=== PATIENT | male | born 1975 | race Caucasian/White ===

== ENCOUNTER 2017-03-21 05:53 | Inpatient (IN) | payer OTHER ==
[2017-03-20 15:02] VITALS: Ht 185.4 cm; Wt 90.0 kg
[2017-03-21] VITALS (22 sets, daily range): BP systolic 107–146; BP diastolic 61–87; PULSE 60–82; RESP 10–18
[~2017-03-21] VITALS: Ht 185.4 cm; Wt 90.0 kg
--- NOTE | 2017-03-21 06:57 | HPN ---
Date/Time of Note Date/Time of Note DATE: 03/21/17 TIME: 06:57 Interval H&P Admission Note Pt. seen H&P reviewed: No system changes PRASANNA MCCLAIN MD Mar 21, 2017 06:57
[2017-03-21] MEDS ORDERED: HYDROmorphONE 1 MG/ML SYG IV PRN (07:00)
[2017-03-21] MEDS ORDERED: NALOXONE (0.4 MG/ML) INJ IV PRN (07:00)
[2017-03-21] MEDS ORDERED: GELATIN SIZE 100 SPONGE ONE (07:01)
[2017-03-21] MEDS ORDERED: SURGIFOAM POWDER 1 GM KIT ONE (07:01)
[2017-03-21] MEDS ORDERED: THROMBIN 5000 UNIT VIAL ONE (07:02)
[2017-03-21] MEDS ORDERED: POLYMYXIN/BACITRACIN 1L IRRIG ONE (07:02)
[2017-03-21] MEDS ORDERED: BUPIVACAINE 0.5%/EPI (SDV) 30 ML INJ ONE (07:02)
[2017-03-21] MEDS ORDERED: SODIUM CL BACTERIOSTATIC 30 ML INJ ONE (07:02)
[2017-03-21] MEDS ORDERED: FENTAnyl 50 MCG/ML VIAL ONE ×2 (07:10→09:02)
[2017-03-21] MEDS ORDERED: LABETALOL HCL 20MG INJ ONE (07:53)
[2017-03-21] MEDS ORDERED: SUCCINYLCHOLINE CHLORIDE 100 MG/5 ML SYG IV ONE (08:00)
[2017-03-21] MEDS ORDERED: ROCURONIUM 50 MG INJ ONE (08:00)
[2017-03-21] MEDS ORDERED: PROPOFOL 20 ML ONE (08:00)
[2017-03-21] MEDS ORDERED: LIDOCAINE 2% (SDV) 5 ML INJ ONE (08:00)
[2017-03-21] MEDS ORDERED: SUGAMMADEX SODIUM 200 MG/2 ML VIAL IV ONE (08:00)
[2017-03-21] MEDS ORDERED: CEFAZOLIN 1 GM INJ ONE (08:00)
[2017-03-21] MEDS ORDERED: ONDANSETRON 4 MG INJ IV PRN (08:30)
[2017-03-21] MEDS ORDERED: METOCLOPRAMIDE 10 MG INJ IV PRN (08:30)
[2017-03-21] MEDS ORDERED: DIPHENHYDRAMINE 50 MG INJ IV PRN ×2 (08:30→10:00)
[2017-03-21] MEDS ORDERED: FENTAnyl 50 MCG/ML VIAL IV PRN ×2 (08:30)
[2017-03-21] MEDS ORDERED: LABETALOL HCL 20MG INJ IV PRN (08:30)
[2017-03-21] MEDS ORDERED: MEPERIDINE 25 MG INJ IV PRN (08:30)
[2017-03-21] MEDS ORDERED: HYDROmorphONE (0.2 MG/ML) 10ML SYG IV PRN ×3 (08:30)
[2017-03-21] MEDS ORDERED: BUPIVACAINE 0.25%/EPI (SDV) 10 ML INJ INJ ONE (08:58)
--- NOTE | 2017-03-21 09:25 | SIPON ---
Date/Time of Note Date/Time of Note DATE: 03/21/17 TIME: 09:24 Operative Report Preoperative Diagnosis C5-6 cervical disc disease and stenosis Postoperative Diagnosis C5-6 cervical disc disease and stenosis Operation/Procedure Performed ACDF at C5-6 Surgeon see signature line assistant field hockey coach Robina solo Anesthesia: general Estimated blood loss: 10 - 50 ml's Transfusion Required none Specimen C5-6 disc Grafts/Implants Cervical plate and cage Complications none PRASANNA MCCLAIN MD Mar 21, 2017 09:25
[2017-03-21] MEDS: HYDROmorphONE 0.2 MG/ML PCA IV SCH ×2 (09:43→19:47)
--- NOTE | 2017-03-21 09:46 | RADRPT ---
PROCEDURE: Intraoperative fluoroscopy. CLINICAL INDICATION: Intraoperative fluoroscopy during cervical spine surgery. TECHNIQUE: 5 spot intraoperative fluoroscopic images were provided. The images were reviewed on a high-resolution PACS workstation. COMPARISON: None available FINDINGS: Multiple spot intraoperative fluoroscopic views were provided during cervical spine surgery. The im ages demonstrate initial metallic probe at the C5-6 level. Subsequent images demonstrate anterior ce rvical discectomy and fusion at C5-6. The hardware appears in satisfactory position. The total fluo roscopy time was 14.1 seconds. IMPRESSION: 1. Multiple spot intraoperative fluoroscopic views during cervical spine surgery were provided. 2. Please see operative report of the same day for further information. RPTAT: HGAS .Curry Mcallister MD, MD Date Time Electronically viewed and signed by .Curry Mcallister MD, on 03/21/2017 09:45 .S/
[2017-03-21] MEDS ORDERED: DIPHENHYDRAMINE 25 MG CAP PO PRN (10:00)
[2017-03-21] MEDS ORDERED: BISACODYL 10 MG SUPP PR PRN (10:00)
[2017-03-21] MEDS ORDERED: AL HYDROX/MG HYDROX/SIMETH 30 ML CUP PO PRN (10:00)
[2017-03-21] MEDS ORDERED: ACETAMINOPHEN 325 MG TAB PO PRN (10:00)
[2017-03-21] MEDS ORDERED: CEFAZOLIN 1 GM/50 ML (PMX) 50 ML IVPB SCH (10:00)
[2017-03-21] MEDS ORDERED: CYCLOBENZAPRINE 10 MG TAB PO PRN (10:00)
[2017-03-21] MEDS ORDERED: CEPASTAT LOZENGE MT PRN (10:00)
[2017-03-21] MEDS: ONDANSETRON 4 MG INJ IV PRN (10:07)
[2017-03-21] MEDS: FENTAnyl 50 MCG/ML VIAL IV PRN ×2 (10:21→12:51)
[2017-03-21] MEDS: D5W-0.45 NACL + KCL 20 MEQ 1,000 ML IV SCH ×2 (11:06→21:11)
--- NOTE | 2017-03-21 11:12 | OPR ---
DATE OF OPERATION: 03/21/2017 PREOPERATIVE DIAGNOSIS: C5-6 cervical disc disease and stenosis with radiculopathy. POSTOPERATIVE DIAGNOSIS: C5-6 cervical disc disease and stenosis with radiculopathy. PROCEDURE: 1. Anterior cervical diskectomy, spinal cord decompression at C5-6. 2. Anterior cervical fusion at C5-6. 3. Placement of intervertebral biomechanical device at C5, C6. 4. Placement of anterior hardware at C5-6. 5. Use of allograft. 6. Use of C-arm flash with interpretation without radiologist present. 7. Use of operative microscope. 8. Intraoperative neuro monitoring (1.5 hours). PRIMARY SURGEON: Salbador Valdez MD. TIMBER FELLER: Robina Jansen PA-C. NEED FOR SURGICAL ASSISTANCE: Superintendent Building was required in order to retract neurovascular elements. IMPLANTS: 1. Zavation 12 mm cervical plate with 14 mm screws. 2. BK peek cage 8 mm x 16 mm x 18 mm. 3. Fiber graft matrix. FINDINGS: Neuro monitor of the case revealed left C5 amplitude down 30 percent left C6 amplitude of 30 percent and the case nerve signal returned to normal. The patient had stenosis at C5- 6 due to posterior osteophytes. ESTIMATED BLOOD LOSS: 30 cc. DRAINS: None. SPECIMENS: Disc. COMPLICATIONS: None. ANESTHESIOLOGIST: Dr. Hurtado. ANESTHESIA: General. INDICATION FOR PROCEDURE: This is a 41-year-old gentleman with left cervical radiculopathy, in the setting of cervical disease and stenosis. He failed nonoperative measures, therefore, recommended proceeding with the above mentioned surgery. Preoperatively, discussed risks, benefits, alternatives. He understood and wished to proceed. DESCRIPTION OF PROCEDURE IN DETAIL: The patient was identified in the holding area, given Ancef antibiotics in the operating room, where he was successfully placed under general anesthesia. Neuro monitors were placed. Sequential devices were applied. Neural monitoring was utilized during the procedure for 1.5 hours to include SSEP, MEP, and EMG. This was performed by [employer]. Start time was 8:00 a.m., closure time was 9:30 a.m. The patient was placed on the operative table in supine position. Arms were tucked. Towel rolls were placed. The neck was extended. Neck was prepped and draped in the usual sterile fashion. I injected the incision site with Marcaine and epinephrine. A left-sided neck incision was made. Incision was taken down to the platysma. Platysma was incised in line with the skin incision. I then identified the interval between the sternocleidomastoid and strap muscles. I identified the anterior spine. I placed a bent spinal into what was felt to be the C5-6 level and then a lateral film obtained to confirm the correct levels. Once this was confirmed the subperiosteal was dissected along the longus coli musculature. Self-retaining retractors were then placed. Microscope was brought in. Radical diskectomy was performed at the C5-6 level. I used a high-speed bur to thin down the posterior osteophytes. I then took a Kerrison to decompress the spinal cord and the neural foramina bilaterally. I removed the posterior longitudinal ligament. Once this was done, all nerve signal returned to normal. I then paid placed various trials and chose the appropriate graft height. Of note, the decompression was performed under the microscope. I then took the peek cage which I placed the allograft that was mixed with blood and I impacted the intervertebral biomechanical device into the C5-6 level to complete the anterior cervical fusion at C5-6. I then placed a cervical plate anteriorly at C5-6 with 14 mm screws. I locked down the screws. Once the hardware was in place I took final AP and lateral images that showed the hardware in line with the screws. Hemostasis achieved with bipolar cautery, Surgiflo and Gelfoam and thrombin. That was then irrigated. The wound was dry and therefore I elected not to place a drain. Microscope was taken off the field. I closed the platysma with a running 2-0 Vicryl stitch. I closed the skin with a 3-0 Vicryl stitch. Dermabond was then applied. The patient was then awakened from anesthesia, and taken to the recovery room in stable condition. Lap, sponge, and counts correct x2. There were no apparent complications during the procedure. The patient will be admitted to the [facility] for routine postoperative care to include pain control, antibiotics and physical therapy. Dictated By: Salbador Valdez MD /joan/nova /Document#: [id number]
--- NOTE | 2017-03-21 12:06 | CONS ---
DATE OF ADMISSION: 03/21/2017 DATE OF CONSULTATION: 03/21/2017 REASON FOR CONSULTATION: History of left arm radiculopathy due to cervical spine disease. HISTORY OF PRESENT ILLNESS: This 41-year-old man has been having neck pain with radiation down his left arm. The patient was diagnosed preoperatively with cervical spine stenosis. He has disease at the C5-C6 level. The patient is now postop a cervical spine anterior cervical diskectomy and spinal cord decompression at the C5-C6 level. He also underwent an anterior cervical fusion at C5-C6 level. The patient is awake and alert. He answers questions appropriately. His is in the room with him. The patient denies any chest pain, shortness of breath, nausea, vomiting. PAST MEDICAL HISTORY: Unremarkable. CURRENT MEDICATIONS: Include Flexeril, and he was on ibuprofen, which was discontinued preoperatively. PAST SURGICAL HISTORY: Cholecystectomy. ALLERGIES TO MEDICATION: No known drug allergies. SOCIAL HISTORY: The patient is in the . 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 He is . He does not smoke. He drinks alcohol occasionally. He lives with his family. PHYSICAL EXAMINATION: GENERAL APPEARANCE: At this time reveals a well-developed man in no apparent distress. VITAL SIGNS: Pulse is 77, blood pressure 120/75, O2 saturation 98 percent on 2 L nasal cannula. HEENT: Head normocephalic. Eyes: Extraocular muscles intact. Nose and mouth are normal. NECK: Neck is postsurgical with a dry fresh wound on the left side of the neck without swelling or erythema. There is no drainage. LUNGS: Clear to auscultation. HEART: Regular rhythm. No murmurs, gallops, or rubs. ABDOMEN: Soft, nontender. EXTREMITIES: No peripheral edema. IMPRESSION: The patient is doing well after surgery today. He is awake and alert and has no complaints. He seems comfortable, and his pain is controlled. I will continue to follow the patient and manage his medical issues. PLAN: 1. Check labs in the morning. 2. Postoperative cervical spine surgery protocol. 3. I will follow the patient along with you Dictated By: Nathanael Farrell MD /joan/freddy /Document#: [id number]
[2017-03-21] MEDS: CEFAZOLIN 1 GM/50 ML (PMX) 50 ML IVPB SCH ×2 (13:46→21:43)
[2017-03-21] MEDS: DOCUSATE SODIUM 100 MG CAP PO SCH (21:42)
[2017-03-22 01:54] VITALS: BP 115/70; RESP 18
[2017-03-22 05:29] LABS: BASOPHILS % 0.3 % (0.0-2.0); EOSINOPHILS # 0.1 10^3/ul (0.0-0.5); EOSINOPHILS % 1.2 % (0.0-7.0); HEMATOCRIT 35.4 % (42.0-52.0); HEMOGLOBIN 11.7 g/dl (14.0-18.0); LYMPHOCYTES # 1.3 10^3/ul (0.8-2.9); LYMPHOCYTES % 22.3 % (15.0-51.0); MEAN CORPUSCULAR HEMOGLOBIN 29.8 pg (29.0-33.0); MEAN CORPUSCULAR HGB CONC 33.1 g/dl (32.0-37.0); MEAN CORPUSCULAR VOLUME 90.1 fl (82.0-101.0); MEAN PLATELET VOLUME 9.5 fl (7.4-10.4); MONOCYTE # 0.5 10^3/ul (0.3-0.9); MONOCYTES % 8.9 % (0.0-11.0); PLATELET COUNT 175 10^3/UL (140-415); RED BLOOD COUNT 3.93 10^6/ul (4.70-6.10); RED CELL DISTRIBUTION WIDTH 11.4 % (11.5-14.5)
[2017-03-22] MEDS ORDERED: PANTOPRAZOLE 40 MG INJ IV SCH (06:00)
[2017-03-22] MEDS: CEFAZOLIN 1 GM/50 ML (PMX) 50 ML IVPB SCH (06:04)
[2017-03-22 06:10] LABS: CALCIUM 8.2 mg/dl (8.4-10.2); CREATININE 1.02 mg/dl (0.61-1.24); MAGNESIUM 1.7 mg/dl (1.7-2.5); POTASSIUM 3.8 mmol/L (3.5-5.1)
[2017-03-22] MEDS: D5W-0.45 NACL + KCL 20 MEQ 1,000 ML IV SCH (06:43)
[2017-03-22 08:19] VITALS: BP 117/74; RESP 18
[2017-03-22] MEDS: DOCUSATE SODIUM 100 MG CAP PO SCH (08:40)
[2017-03-22] MEDS: ONDANSETRON 4 MG INJ IV PRN (08:40)
[2017-03-22] MEDS ORDERED: HYDROCODONE/APAP (10/325) TAB PO SCH (09:30)
[2017-03-22] MEDS: HYDROCODONE/APAP (10/325) TAB PO PRN ×2 (09:37→11:39)
--- NOTE | 2017-03-22 09:45 | DS ---
Date/Time of Note Date/Time of Note DATE: 03/22/17 TIME: 09:44 Discharge Summary Admission/Discharge Info Admit Date/Time Mar 21, 2017 at 05:53 Discharge Date/Time 03/22 Discharge Diagnosis cervical fusion Procedures cervical fusion Hx of Present Illness neck and arm pain Hospital Course patient admitted to [facility] after undergoing cervical fusion. post op course uncomplicated stable for d/c f/u arranged Home Meds No Active Prescriptions or Reported Meds Primary Care Provider Not On Staff Doctor Pending Labs Laboratory Tests Test 03/22/17 04:31 White Blood Count 6.010^3/ul (4.8-10.8) Red Blood Count 3.9310^6/ul (4.70-6.10) Hemoglobin 11.7g/dl (14.0-18.0) Hematocrit 35.4% (42.0-52.0) Mean Corpuscular Volume 90.1fl (82.0-101.0) Mean Corpuscular Hemoglobin 29.8pg (29.0-33.0) Mean Corpuscular Hemoglobin Concent 33.1g/dl (32.0-37.0) Red Cell Distribution Width 11.4% (11.5-14.5) Platelet Count 02570^3/UL (140-415) Mean Platelet Volume 9.5fl (7.4-10.4) Neutrophils % 67.0% (39.0-77.0) Lymphocytes % 22.3% (15.0-51.0) Monocytes % 8.9% (0.0-11.0) Eosinophils % 1.2% (0.0-7.0) Basophils % 0.3% (0.0-2.0) Nucleated Red Blood Cells % 0.0/100WBC (0.0-0.0) Neutrophils # 4.010^3/ul (1.6-7.5) Lymphocytes # 1.310^3/ul (0.8-2.9) Monocytes # 0.510^3/ul (0.3-0.9) Eosinophils # 0.110^3/ul (0.0-0.5) Basophils # 0.010^3/ul (0.0-0.1) Nucleated Red Blood Cells # 0.010^3/ul (0.0-0.0) Sodium Level 134mmol/L (135-144) Potassium Level 3.8mmol/L (3.5-5.1) Chloride Level 100mmol/L (97-110) Carbon Dioxide Level 29mmol/L (21-31) Anion Gap 9 (8-16) Blood Urea Nitrogen 9mg/dl (7-20) Creatinine 1.02mg/dl (0.61-1.24) Glucose Level 124mg/dl (70-220) Calcium Level 8.2mg/dl (8.4-10.2) Magnesium Level 1.7mg/dl (1.7-2.5) PRASANNA MCCLAIN MD Mar 22, 2017 09:45
[2017-03-22] MEDS ORDERED: HYDROCODONE/APAP (10/325) TAB PO PRN (10:00)
[2017-03-22] MEDS ORDERED: ONDANSETRON 4 MG INJ IV STA (11:16)
--- NOTE | 2017-03-22 11:20 | CONS ---
Date/Time of Note Date/Time of Note DATE: 03/22/17 TIME: 11:06 Assessment/Plan Assessment/Plan Chief Complaint/Hosp Course He is one day post op a cervical spine surgery . He is having some nausea . He is up walking with PT and doing well . He can be discharged to home today . Problems: Consultation Date/Type/Reason Admit Date/Time Mar 21, 2017 at 05:53 Initial Consult Date 24 HR Interval Summary Free Text/Dictation He is 1 day post op a cervical spine surgery .He is up walking with physical therapy . He c/o nausea . Exam/Review of Systems Vital Signs Vitals Vital Signs Date Time Temp Pulse Resp B/P Pulse Ox O2 Delivery O2 Flow Rate FiO2 03/22/17 08:19 98.1 75 18 117/74 98 03/21/17 20:00 Nasal Cannula 2.0 Intake and Output 03/21/17 03/21/17 03/22/17 15:00 23:00 07:00 Intake Total 1450 ml 1600 ml 1400 ml Output Total 20 ml 900 ml Balance 1430 ml 700 ml 1400 ml Exam Constitutional: alert, oriented, well developed Respiratory: clear to auscultation, normal air movement Cardiovascular: regular rate and rhythm Gastrointestinal: soft Musculoskeletal: nl extremities to inspection Results Result Diagram: 03/22/17 0431 03/22/17 0431 Results 24 hrs Laboratory Tests Test 03/22/17 04:31 White Blood Count 6.0 Red Blood Count 3.93 L Hemoglobin 11.7 L Hematocrit 35.4 L Mean Corpuscular Volume 90.1 Mean Corpuscular Hemoglobin 29.8 Mean Corpuscular Hemoglobin Concent 33.1 Red Cell Distribution Width 11.4 L Platelet Count 175 Mean Platelet Volume 9.5 Neutrophils % 67.0 Lymphocytes % 22.3 Monocytes % 8.9 Eosinophils % 1.2 Basophils % 0.3 Nucleated Red Blood Cells % 0.0 Neutrophils # 4.0 Lymphocytes # 1.3 Monocytes # 0.5 Eosinophils # 0.1 Basophils # 0.0 Nucleated Red Blood Cells # 0.0 Sodium Level 134 L Potassium Level 3.8 Chloride Level 100 Carbon Dioxide Level 29 Anion Gap 9 Blood Urea Nitrogen 9 Creatinine 1.02 Glucose Level 124 Calcium Level 8.2 L Magnesium Level 1.7 Medications Medications Current Medications Potassium Chloride/Dextrose/ Sod Cl (D5-1/2ns + KCl 20 Meq) 1,000 ml @ 100 mls/ hr Q10H IV Last administered on 03/22/17 06:43; Admin Dose 100 MLS/HR; Start 03/21/17 at 10:00 Acetaminophen/ Hydrocodone Bitart ([place] (10/325)) 1 tab Q4H PRN PO PAIN LEVEL 1-5 Last administered on 03/22/17 09:37; Admin Dose 1 TAB; Start 03/22/17 at 10 :00 Acetaminophen/ Hydrocodone Bitart ([place] (10/325)) 2 tab Q4H PRN PO PAIN LEVEL 6-10; Start 03/22/17 at 10:00 Hydromorphone HCl (Dilaudid) 0.2 mg Q1H PRN IV BREAKTHROUGH PAIN; Start at 07:00 Ondansetron HCl (Zofran Inj) 4 mg Q6H PRN IV NAUSEA AND/OR VOMITING Last administered on 03/22/17 08:40; Admin Dose 4 MG; Start 03/21/17 at 10:00 Bisacodyl (Dulcolax Supp) 10 mg DAILY PRN SD CONSTIPATION; Start 03/21/17 at 10 :00 Docusate Sodium (Colace) 100 mg BID PO Last administered on 03/22/17 08:40; Admin Dose 100 MG; Start 03/21/17 at 21:00 Pantoprazole (Protonix Iv) 40 mg DAILY@06 IV Last administered on 03/22/17 06: 04; Admin Dose 40 MG; Start 03/22/17 at 06:00 Al Hydrox/Mg Hydrox/Simethicone (Mag-Al Plus) 15 ml Q6H PRN PO CONSTIPATION/ DYSPEPSIA; Start 03/21/17 at 10:00 Acetaminophen (Tylenol Tab) 650 mg Q4H PRN PO MARTINES OR TEMP GREATER THAN 101.3F; Start 03/21/17 at 10:00 Cyclobenzaprine HCl (Flexeril) 10 mg TID PRN PO MUSCLE SPASMS; Start 03/21/17 at 10:00 Phenol (Cepastat Lozenge) 1 lozenge PRN PRN MT SORE THROAT; Start 03/21/17 at 10:00 Diphenhydramine HCl (Benadryl) 25 mg Q6H PRN PO ITCHING; Start 03/21/17 at 10: 00 Diphenhydramine HCl (Benadryl) 25 mg Q6H PRN IV ITCHING; Start 03/21/17 at 10: 00 Naloxone HCl (Narcan) 0.2 mg Q2M PRN IV RR 8 BREATHS/MIN OR LESS; Start at 07:00 Hydromorphone HCl (Dilaudid CRISIS INTERVENTION SPECIALIST) CRISIS INTERVENTION SPECIALIST to be started in PACU Q4PCA IV Last administered on 03/21/17t 19:47; Admin Dose 6 MG; Start 03/21/17 at 07:00; Status Future Hold Miscellaneous Information 1. Hold CRISIS INTERVENTION SPECIALIST at 1,000... CRISIS INTERVENTION SPECIALIST IV ; Start 03/21/17 at 07: 00 LIBAN TRIPLETT MD Mar 22, 2017 11:20
== END 2017-03-22 12:00 | disposition home or self-care (01) | DRG 473 ==
LOC: REC 05:53 → EDSTATUS 07:00 → MS1 10:45
PROVIDERS: ADMIT Specialist; ATTEND Specialist
PROC: 0RT30ZZ Resection of Cervical Vertebral Disc, Open Approach (ICD-10-PCS; 2017-03-21)
PROC: 0RG10A0 Fusion of Cervical Vertebral Joint with Interbody Fusion Device, Anterior Approach, Anterior Column, Open Approach (ICD-10-PCS; principal; 2017-03-21 07:00)
DX: M50.122 Cervical disc disorder at C5-C6 level with radiculopathy (principal); M48.02 Spinal stenosis, cervical region
CPT/HCPCS: 72050; 80048; 83735; 85025; 86999; 97116; 97161; 97530; C9113; J0690; J1170; J2405; J3010; J3480; J7999